=== PATIENT | female | born 1975 | race Caucasian/White ===

== ENCOUNTER → 2017-04-15 | Outpatient (CLI) | payer BC ==
[~2017-04-15] MED LIST: CARDIZEM CD240 M1 PO; OMEPRAZOLE10 M1 PO; ST. JOSEPH ASPI81 M2 PO; ZOLOFT PO
--- NOTE | ~2017-04-15 | US128 ---
[id number] [facility] [address] [place], [place] [address] [id number] O MR#: [id number] Acc #: [id number] NAME: AFRICA PARKER : 1975 SEX: F STUDY DATE/TIME: 04/15/2017 13:14 UNIT: [facility] ROOM: STUDY DESCRIPTION: Thyroid Attending Physician: Stormy Newton M.D. Referring Physician: Stormy Newton M.D. Ordering Physician: Stormy Newton M.D. Primary Care Physician: Stormy Newton M.D. MEDICAL IMAGING REPORT This report is preliminary unless electronic signature is present EXAM Thyroid ultrasound INDICATIONS Hyperthyroidism. Patient reports that labs were drawn on April 08, 2017, her heart rate has been elevated and she reports anxiety. TECHNIQUE Coley-scale and color Doppler sonographic images were obtained through the thyroid gland. FINDINGS Right lobe of the thyroid gland measures 2.6 x 5.6 x 2.4 cm, left lobe measures 2.5 x 5.9 x 2.3 cm, isthmus measures up to 1 cm in thickness. No discrete nodules are identified, but the thyroid gland is certainly very heterogeneous and is also noted to be hypervascular. IMPRESSION Enlarged and heterogeneous thyroid gland, which also appears mildly hypervascular. Finding is nonspecific but certainly can be seen in the setting of Graves' disease. Correlation with thyroid uptake scan and laboratory values is recommended. No discrete nodules are seen. Dictated by... Lucia Herrera M.D. THIS IS AN ELECTRONICALLY VERIFIED REPORT Lucia Herrera M.D. at 04/16/2017 5:00 PM AFF/psc TD: 04/15/2017 23:02 JOB #: [id number] MEDICAL IMAGING REPORT Page 1 of 1 COPY
--- NOTE | ~2017-04-15 | MY11 ---
[facility] A Service of [facility] RADIOLOGY TEXT RESULTS PATIENT: AFRICA PARKER LOCATION: [facility] : 71 UNIT #: [id number] AGE: [address]: CHUCK CHOE MD SEX: F ORDER DR: [id number] [facility] [address] [place], [place] [address] [id number] O MR#: [id number] Acc #: [id number] NAME: AFRICA PARKER : 1975 SEX: F STUDY DATE/TIME: 04/15/2017 12:55 UNIT: [facility] ROOM: STUDY DESCRIPTION: MY Mammogram Screening Dig Miguel Angel Attending Physician: Chuck Choe M.D. Referring Physician: Chuck Choe M.D. Ordering Physician: Chuck Choe M.D. Primary Care Physician: Chuck Choe M.D. MEDICAL IMAGING REPORT This report is preliminary unless electronic signature is present EXAM Digital screening mammogram 04/15/2017. HISTORY 41-year-old woman; baseline mammogram. No risk elevation. COMPARISON None. FINDINGS Digital imaging of each breast was completed utilizing a two-view examination of each breast in craniocaudal and mediolateral-oblique projections. Review and interpretation of digital mammograms include a second review in conjunction with FDA-approved CAD device. There is a normal parenchymal presentation bilaterally consistent with the patient's age. There are no breast masses imaged and no parenchymal asymmetry is visualized. There are no suspicious microcalcifications and I see no focal architectural disturbance. IMPRESSION Negative screening digital mammogram. One-year followup recommended. Patients over the age of 40 are entered into a reminder system with target due date for the next mammogram. A result letter will also be sent to the patient. BIRADS: 1 Negative Dictated by... Sebas Rahman M.D. [facility] A Service of [facility] RADIOLOGY TEXT RESULTS PATIENT: AFRICA PARKER LOCATION: [facility] : 71 UNIT #: [id number] AGE: [address]: CHUCK CHOE MD SEX: F ORDER DR: THIS IS AN ELECTRONICALLY VERIFIED REPORT Sebas Rahman M.D. at 04/16/2017 8:10 AM Leida TD: 04/15/2017 19:16 JOB #: [id number] MEDICAL IMAGING REPORT Page 1 of 1 COPY
== END | disposition home or self-care (01) ==
LOC: CWCC 12:27
DX: Z12.31 Encounter for screening mammogram for malignant neoplasm of breast (principal); E05.00 Thyrotoxicosis with diffuse goiter without thyrotoxic crisis or storm
CPT/HCPCS: 76536; G0202

== ENCOUNTER → 2017-04-15 | Outpatient (CLI) | payer BC ==
--- NOTE | ~2017-04-15 | NM86 ---
[facility] A Service of [facility] RADIOLOGY TEXT RESULTS PATIENT: AFRICA PARKER LOCATION: [facility] : [birth year] UNIT #: [id number] AGE: [address]: CHUCK CHOE MD SEX: F ORDER DR: [id number] [facility] [address] [place], [place] [address] [id number] O MR#: [id number] Acc #: [id number] NAME: AFRICA PARKER : 1975 SEX: F STUDY DATE/TIME: 04/15/2017 8:08 UNIT: [facility] ROOM: STUDY DESCRIPTION: NM Thyroid Img W Uptake Attending Physician: Chuck Choe M.D. Referring Physician: Chuck Choe M.D. Ordering Physician: Chuck Choe M.D. Primary Care Physician: Chuck Choe M.D. MEDICAL IMAGING REPORT This report is preliminary unless electronic signature is present EXAM Thyroid uptake and scan, 04/15/2017. HISTORY Increased appetite, mood swings, elevated TSH, hair thinning, hot all the time, insomnia, fatigue, some difficulty swallowing, puffy eyes, currently testing for glaucoma due to increased eye pressure. FINDINGS On 04/14/2017, patient ingested capsule containing 175.8 mcCi iodine-123. Patient returned 24 hours later. Thyroid 24-hour iodine uptake calculated. Static images obtained. The 24-hour thyroid iodine uptake is 94.4%. This is abnormally elevated. Normal range 10% to 30%. Static images of the thyroid show homogeneous distribution of radioiodine throughout the thyroid without focal area of abnormally increased or decreased tracer distribution. Please correlate with the patient's laboratory data and clinical evaluation. Dictated by... Arnel Helm M.D. THIS IS AN ELECTRONICALLY VERIFIED REPORT Arnel Helm M.D. at 04/16/2017 10:27 PM Bindu TD: 04/16/2017 02:36 JOB #: [id number] MEDICAL IMAGING REPORT Page 1 of 1 COPY
== END | disposition home or self-care (01) ==
LOC: CNUC 07:23
DX: E05.90 Thyrotoxicosis, unspecified without thyrotoxic crisis or storm (principal)
CPT/HCPCS: 78014; A9516

== ENCOUNTER → 2017-06-12 | Outpatient (CLI) | payer BC ==
--- NOTE | ~2017-06-12 | EKG ---
PATIENT: AFRICA PARKER UNIT #: [id number] Ventricular Rate: 94 BPM Atrial Rate: 94 BPM QRS Duration: 76 ms Q-T Interval: 364 ms QTC Calculation(Bezet): 455 ms Calculated R Edison: 80 degrees Calculated T Edison: 67 degrees Diagnosis Line: Atrial fibrillation Diagnosis Line: Nonspecific ST abnormality Diagnosis Line: Abnormal ECG Diagnosis Line: No previous ECGs available Diagnosis Line: Confirmed by DAILY LIZ MD ([id number]) on 06/12/2017 Diagnosis Line: 8:00:23 PM INTERPRETING MD: AGUSTO TAYLOR
== END | disposition home or self-care (01) ==
LOC: CEKG 14:45
DX: R00.2 Palpitations (principal); E05.00 Thyrotoxicosis with diffuse goiter without thyrotoxic crisis or storm; I48.91 Unspecified atrial fibrillation; R94.31 Abnormal electrocardiogram [ECG] [EKG]
CPT/HCPCS: 93005